=== PATIENT | female | born 2000 | race Caucasian/White ===

== ENCOUNTER 2021-05-23 13:45 | Emergency (ER) | payer OTHER ==
[~2021-05-23] VITALS: Ht 160 cm; Wt 117.0 kg
[2021-05-23] MEDS ORDERED: BUPROPION HCL200 M1 PO (13:58)
[2021-05-23] MEDS ORDERED: CLONAZEPAM0.5 M1 PO (13:58)
[2021-05-23] MEDS ORDERED: HYDROXYZIN10 MG/5 ML PO (13:59)
== END 2021-05-23 18:49 | disposition home or self-care (01) ==
LOC: ER 13:45
DX: K29.70 Gastritis, unspecified, without bleeding (principal); N20.0 Calculus of kidney

== ENCOUNTER 2021-06-07 17:50 | Emergency (ER) | payer OTHER ==
[~2021-06-07] VITALS: Ht 160 cm; Wt 114.8 kg
[~2021-06-07 17:50] MED LIST: BUPROPION HCL200 M1 PO; CLONAZEPAM0.5 M1 PO; HYDROXYZIN10 MG/5 ML PO
[2021-06-07] MEDS ORDERED: FLUCONAZOLE150 MG PO (22:47)
[2021-06-07] MEDS ORDERED: MEDROXYPROGESTE10 MG PO (22:47)
== END 2021-06-07 23:53 | disposition home or self-care (01) ==
LOC: ER 17:50
DX: N93.8 Other specified abnormal uterine and vaginal bleeding (principal)

== ENCOUNTER 2021-09-16 23:16 | Emergency (ER) | payer OTHER ==
[~2021-09-16] VITALS: Ht 160 cm; Wt 136.1 kg
[~2021-09-16 23:16] MED LIST changes: +FLUCONAZOLE150 MG PO; +MEDROXYPROGESTE10 MG PO
[2021-09-17] MEDS ORDERED: KETO10TA2 PO (03:25)
[2021-09-17] MEDS ORDERED: CEPHALEXIN500 MG PO (03:25)
== END 2021-09-17 03:48 ==
LOC: ER 23:16
DX: J20.9 Acute bronchitis, unspecified (principal); N39.0 Urinary tract infection, site not specified

== ENCOUNTER → 2021-10-27 | Emergency (ER) | payer OTHER ==
[~2021-10-27] VITALS: Ht 162.6 cm; Wt 138.3 kg
[~2021-10-27] MED LIST changes: +CEPHALEXIN500 MG PO; +CIPROFLOXACIN500 MG PO; +INTESTINEX680 M1 PO; +KETO10TA2 PO; +METRONIDAZOLE500 MG PO; +PEPCID AC20 MG PO
== END | disposition home or self-care (01) ==
LOC: ER 00:03
DX: N39.0 Urinary tract infection, site not specified (principal); N76.0 Acute vaginitis; R19.7 Diarrhea, unspecified

== ENCOUNTER 2022-04-28 13:24 | Emergency (ER) | payer OTHER ==
[~2022-04-28] VITALS: Ht 160 cm; Wt 149.2 kg
== END 2022-04-28 16:22 | disposition home or self-care (01) ==
LOC: ER 13:24
DX: N39.0 Urinary tract infection, site not specified (principal); R30.0 Dysuria